=== PATIENT | male | born 1995 | race Caucasian/White ===

== ENCOUNTER 2017-01-23 21:57 | Emergency (ER) | payer OTHER ==
--- NOTE | ~2017-01-23 | CT71 ---
[facility] A Service of [facility] RADIOLOGY TEXT RESULTS PATIENT: KALANI LUNDY LOCATION: [facility] : [birth year] UNIT #: [id number] AGE: [address]: Jean Harvey MD SEX: M ORDER DR: [id number] [facility] [address] [place], [place] [address] [id number] E MR#: [id number] Acc #: [id number] NAME: KALANI LUNDY : 1995 SEX: M STUDY DATE/TIME: 01/23/2017 22:44 UNIT: [facility] ROOM: STUDY DESCRIPTION: CT Head Wo Contrast Attending Physician: Jorge Harvey M.D. Ordering Physician: Donnell Mccallum M.D. Primary Care Physician: Tiffany Mckeon M.D. MEDICAL IMAGING REPORT This report is preliminary unless electronic signature is present EXAM Head CT, 01/23 at 22:44 INDICATIONS Overdose today. Patient hit left side of head today and now has left side headache. COMPARISON 09/21/2016 TECHNIQUE Axial noncontrast images were obtained from the skull base to the vertex. This CT exam was performed with one or more of the following radiation dose reduction techniques: Automatic exposure control, adjustment of mA and/or kV according to patient size, and iterative reconstruction. FINDINGS Ventricular size and configuration are normal. There is no evidence of acute infarct or hemorrhage. There are no extraaxial fluid collections. No mass lesion or mass effect is seen. There are no skull fractures. IMPRESSION Normal noncontrast head CT. Dictated by... Gene Fowler Jr., M.D. THIS IS AN ELECTRONICALLY VERIFIED REPORT Gene Fowler Jr., M.D. at 01/24/2017 6:01 AM SOLOMONK/belen [facility] A Service of [facility] RADIOLOGY TEXT RESULTS PATIENT: KALANI LUNDY LOCATION: [facility] : [birth year] UNIT #: [id number] AGE: [address]: Jean Harvey MD SEX: M ORDER DR: TD: 01/24/2017 03:48 JOB #: [id number] MEDICAL IMAGING REPORT Page 1 of 1 COPY
[~2017-01-23 21:57] MED LIST: AMOXICILLIN500 M1 PO; BACTRIM DS TABL1 TA1 PO; BACTROBAN22 GM TOP; BENADRYL; BENADRYL PO; BENADRYL25 MG PO; BUSPAR PO; CELEXA20 MG PO; DESYREL100 MG; HYDROCORTISONE30 G2 EXT; IBUPROFEN PO; LORTAB 5-325 M1 EACH PO; MUCINEX D ER T1 EAC1 PO; NAPROSYN500 MG PO; NEURONTIN; NO MEDICATIONS; PREDNISONE PO; ROBITUSSIN100 MG/51 PO; VYVANSE PO
== END 2017-01-23 23:20 | disposition left against medical advice (07) ==
LOC: CED 21:57
DX: S09.90XA Unspecified injury of head, initial encounter (principal); T40.1X1A Poisoning by heroin, accidental (unintentional), initial encounter; F17.210 Nicotine dependence, cigarettes, uncomplicated; X58.XXXA Exposure to other specified factors, initial encounter; Y92.9 Unspecified place or not applicable
CPT/HCPCS: 70450; 99284

== ENCOUNTER 2017-04-14 14:17 | Emergency (ER) | payer OTHER ==
[~2017-04-14] VITALS: Ht 172.7 cm; Wt 59.0 kg
--- NOTE | ~2017-04-14 | CR72 ---
[facility] A Service of [facility] RADIOLOGY TEXT RESULTS PATIENT: KALANI LUNDY LOCATION: [facility] : [birth year] UNIT #: [id number] AGE: [address]: Tuan Canseco MD SEX: M ORDER DR: [id number] [address] [address] [id number] E MR#: [id number] Acc #: [id number] NAME: KALANI LUNDY : 1995 SEX: M STUDY DATE/TIME: 04/14/2017 15:04 UNIT: [facility] ROOM: STUDY DESCRIPTION: CR Chest Single View Portable Attending Physician: Tuan Canseco M.D. Ordering Physician: Tuan Canseco M.D. Primary Care Physician: Tiffany Mckeon M.D. MEDICAL IMAGING REPORT This report is preliminary unless electronic signature is present. EXAM Portable chest 04/14/2017 [facility] HISTORY A 21-year-old male patient with fever, headaches, chills and body aches past 2 days. Hepatitis C, substance abuse. 3 years smoking history. COMPARISON STUDIES Comparison chest 09/21/2016. FINDINGS AP upright portable chest demonstrates normal stable cardiac size and configuration. Hilar structures and mediastinal contours are preserved. Lungs are mildly hyperinflated but clear bilaterally. Costophrenic angles are preserved. Bony thorax is intact. IMPRESSION Negative chest. No acute finding. Pulmonary hyperinflation. Dictated by... Isac Banda M.D. THIS IS AN ELECTRONICALLY VERIFIED REPORT Isac Banda M.D. at 04/17/2017 8:08 AM MARIMAR/ravi TD: 04/14/2017 20:38 JOB #: [id number] [facility] A Service [facility] RADIOLOGY TEXT RESULTS PATIENT: KALANI LUNDY LOCATION: [facility] : [birth year] UNIT #: [id number] AGE: [address]: Tuan Canseco MD SEX: M ORDER DR: MEDICAL IMAGING REPORT Page 1 of 1
[2017-04-14 15:04] LABS: BASOPHIL% 0.2 % (0-2.5); EOSINOPHIL# 0.1 X10e3 (0-0.7); EOSINOPHIL% 0.9 % (0.0-7.0); HEMATOCRIT 39.9 % (38.0-50.0); HEMOGLOBIN 13.7 gm/dL (13.0-16.0); LYMPHOCYTE# 0.7 X10e3 (1.0-3.5); LYMPHOCYTE% 7.8 % (17.0-45.0); MEAN CELL VOLUME 89.3 FL (83-96); MEAN CORPUSCULAR HEMOGLOBIN 30.7 PG (28-34); MEAN CORPUSCULAR HGB CONC 34.4 g/dL (30-36); MEAN PLATELET VOLUME 10.2 FL (6.5-11.5); MONOCYTE# 0.9 X10e3 (0-1.0); MONOCYTE% 9.7 % (3.0-12.0); NEUTROPHIL# 7.3 X10e3 (1.5-7.1); NEUTROPHIL% 81.4 % (40-75); PLATELET COUNT 74 X10e3 (140-420); RED BLOOD COUNT 4.47 X10e (3.90-5.60); RED CELL DISTRIBUTION WIDTH 13.1 % (11.0-15.5)
[2017-04-14 15:05] LABS: DIFF IND YES
[2017-04-14 15:25] LABS: ALBUMIN SERUM 4.2 g/dL (3.5-5.0); ALKALINE PHOSPHATASE 58 U/L (32-92); ALT (SGPT) 43 U/L (8-36); AST (SGOT) 34 U/L (13-38); BILIRUBIN, DIRECT <0.1 mg/dL (0.0-0.2); BILIRUBIN,INDIRECT 0.6 mg/dL (0.0-0.9); BILIRUBIN,TOTAL 0.7 mg/dL (0.2-2.0); BLOOD UREA NITROGEN 11 mg/dL (9-23); BUN/CREATININE RATIO 12.22; CALCIUM SERUM 8.8 mg/dL (8.4-10.2); CARBON DIOXIDE 27 mmol/L (22-31); CHLORIDE 98 mmol/L (100-111); CREATININE SERUM 0.9 mg/dL (0.6-1.4); GLOM FILT RATE Estimated 123.4 mL/min (>60); GLUCOSE FASTING 167 mg/dL (70-110); POTASSIUM 4.2 mmol/L (3.5-5.1); PROTEIN TOTAL SERUM 7.4 g/dL (6.0-8.3); SODIUM 131 mmol/L (135-145)
[2017-04-14 15:44] LABS: PLATELET ESTIMATE NORMAL (NORMAL)
== END 2017-04-14 16:15 | disposition home or self-care (01) ==
LOC: SED 14:17
PROVIDERS: Emergency Medicine
DX: R51 Headache (principal); B34.9 Viral infection, unspecified; M79.1 Myalgia; F17.210 Nicotine dependence, cigarettes, uncomplicated
CPT/HCPCS: 36415; 71010; 80048; 80076; 85025; 86308; 96360; 99284